=== PATIENT | male | born 1955 | race African-American/Black ===

== ENCOUNTER 2017-03-17 16:50 | Emergency (ER) | payer MEDICARE, MEDICAID ==
[~2017-03-17] VITALS: Ht 170.2 cm; Wt 97.0 kg
[2017-03-17] MEDS ORDERED: IBUPROFEN 600MG TABLET PO ONE (20:45)
[2017-03-17 21:14] VITALS: BP 129/77
== END 2017-03-17 21:14 | disposition home or self-care (01) ==
LOC: ER 18:57
DX: L02.31 Cutaneous abscess of buttock (principal); F17.200 Nicotine dependence, unspecified, uncomplicated; Z88.0 Allergy status to penicillin; Z86.73 Personal history of transient ischemic attack (TIA), and cerebral infarction without residual deficits
CPT/HCPCS: 99283